=== PATIENT | male | born 1985 | race Caucasian/White ===

== ENCOUNTER 2018-12-28 13:58 | Emergency (ER) | payer OTHER ==
[~2018-12-28] VITALS: Ht 175.2 cm; Wt 88.5 kg
[2018-12-28] MEDS ORDERED: ACYCLOVIR800 MG PO (14:44)
[2018-12-31] MEDS ORDERED: ACYCLOVIR800 MG PO (08:23)
== END 2018-12-28 14:38 | disposition home or self-care (01) ==
LOC: ED 13:58
DX: B02.9 Zoster without complications (principal); F17.200 Nicotine dependence, unspecified, uncomplicated; Z88.1 Allergy status to other antibiotic agents